=== PATIENT | female | born 1960 | race Caucasian/White ===

== ENCOUNTER 2017-06-05 14:30 | Outpatient (RCR) | payer MEDICARE, MEDICAID ==
[2016-08-23 09:35] VITALS: BMI 29.8
--- NOTE | 2017-05-29 17:41 | PT INITIAL EVALUATION ---
MEDICAL DIAGNOSIS: M47.22 Cervical radiculopathy due to DJD of spine TREATMENT DIAGNOSIS: Same DATE OF ONSET: 02/20/11 SUBJECTIVE: Lisa Hartman (Debbie) presents to PT for cervical pain worsening in the last 2 years, but present for several years. She reports limited tolerance to sitting (2 minutes), standing to do dishes (1-2 minutes) and disrupts her sleep (1-2 hours of sleep per night) and ADL's of housework. Neck disability index 80% impairment. Pain location is neck to scapulae, UE's and described as ache, UE's pins and needles entire UE's, hands. Pain scale is 10 on a ten point pain scale. Pain is worse with sitting, standing and better with lying down. REHAB PROBLEM LIST: Increased Pain Decreased ROM Decreased Strength Decreased ADL's Decreased Mobility PREVIOUS MEDICAL HISTORY: 2 lumbar surgeries, R TKA, O2 at night, OCCUPATION: Disabled OBJECTIVE: Posture: Forward head posture, increased thoracic kyphosis. ROM: AROM cervical spine rotation 35%, flexion 75%, extension 50%. AROM thoracic spine flexion 75%, minimal extension. AROM shoulders 100 deg. flexion , 80 deg. abduction. Strength: Leatha self-supports her cervical spine after sitting 8 minutes. Palpation: Painful with light palpation throughout the cervical and upper thoracic soft tissue, facets. Special Tests: DTR's 2/3 UE's. Pulse obliteration with stretch of scalenes and pectoralis minor, B. Mobility: Hypomobile cervical and thoracic spine, shoulders. ASSESSMENT: Lisa Hartman presents with reduced flexibility, ROM, postural weakness affecting sitting and sanding ADL's. She rated cervical pain 5/10 after manual therapy. Short Term Goals 4 weeks: Leatha sleeps 4 hours before awakening due to cervical pain, sits 10 minutes before having to lie down, stands 5 minutes before having to sit. 8 weeks: Leatha sleeps 5-6 hours before awakening due to cervical pain, sits 20 minutes before having to lie down, stands 15 minutes before having to sit down. Patient's Goals Reduce neck pain. PLAN: Patient to be seen for Manual Therapy, Strengthening/condition, Ice/Heat , Range of Motion, Spinal Stabilization, Stretching, Electrical Stim, Posture/ Body mechanics, Home Exercise Program 2x/Week for 2 Months Thank you for this referral. If you have any questions, comments, or concerns about this report or plan, please contact me at . mtdD
[~2017-06-05 14:30] MED LIST: ACE500 PO; ACET500T68 PO; ALBU8.5H IH; ALPR-429 PO; ALPR-448 PO; ALPR-460 PO; AMIT-106 PO; AMIT-108 PO; AMLO-96 PO; AMO500 PO; AMOX-359 PO; AMOX-559 PO; ASPI-1064 PO; ASPI-692 PO; ASPI-757 PO; ATOR20TA65 PO; AZIT-1 PO; AZIT-18 PO; BENZ100C26 PO; BENZ200C15 PO; CEFU250T67 PO; CHOL4PAC15 PO; CIP500 PO; CLO10 MT; CLOT15CR63 TP; COMP1EAC MC; CYCL10TA29 PO; DEXL60CA6 PO; DEXT10SY2 PO; DIA5 PO; DIAZ2TAB72 PO; DICL100G39 TOP; DICY20TA70 PO; DILT360T9 PO; DM H180L19 PO; DOXE25CA45 PO; DOXY50SY2 PO; DULO30CA35 PO; DULO30CA6 PO; DULO60CA56 PO; FLU45SYR17 IM; FLU60VIA21 IM ONLY; FLUT9.9S; FURO20TA19 PO; GAB300 PO; GABA-503 PO; GABA-549 PO; GUAI600T57 PO; HCTZ25 PO; HYDR-2966 PO; HYDR-3250 PO; HYDR-385 PO; HYDR-389 PO; HYDR-4228 PO; HYDR-4308 PO; HYDR-4309 PO; HYDR12.561 PO; HYDR2TAB74 PO; IBU800 PO; IBUP-1618 PO; IPRA15SP7 NS; KET10 PO; KETO120S13 TP; LACT PO; LEVO-85 PO; LEVO750T44 PO; LISI-362 PO; LISI20TA29 PO; LISI5TAB25 PO; LOPE-111 PO; LOR5 PO; LOR5/325 PO; LORA-629 PO; LORA10CA3 PO; MECL25TA9 PO; METH-278 PO; METH-542 PO; METH4TAB57 PO; METH4TAB66 PO; METO5TAB16 PO; MIRT-22 PO; MIRT-27 PO; MONT10TA PO; NIC10R INH; NOR5/325 PO; OMEP-218 PO; ONDA-2 PO; ONDA4TAB PO; ONDA4TAB9 PO; ONDA8TAB98 PO; OXYC-865 PO; OXYC5CAP21 PO; OXYGENHOME INH; PANT40TA65 PO; PER PO; PNEI IM; PNEU0.5D3 IM; POLY10DR20 OP; POTA-53 PO; POTA20TA85 PO; POTA20TA94 PO; PRAZ1CAP26 PO; PRAZ2CAP26 PO; PRE20 PO; PRED20TA6 PO; PROAIRPT IH; PROM-110 PO; PROP80CA3 PO; PROP80CA40 PO; PROP80TA25 PO; RAME8TAB43 PO; RAN150 PO; RANI-366 PO; RANI150C17 PO; RIZA5TAB17 PO; SCOT TD; SERT-181 PO; SERT-184 PO; SUCR1TAB51 PO; SUCR1TAB85 PO; SUMA100T32 PO; SUMA50TA34 PO; SUMA50TA35 PO; TRA50 PO; TRAZ-163 PO; TRAZ50 PO; TRIA15CR40 TP; ZOLCR625PT PO; ZOLP-1 PO; [UNRECOGNIZED DRUG - CODE] ASDIRECTED; [UNRECOGNIZED DRUG - CODE] TP
--- NOTE | 2017-06-19 08:40 | PT PLAN OF CARE ---
Physician: Lacey Hansen APRN MOTION STUDY TECHNICIAN-C Patient is being seen: twice Therapist: Brigette Partida, ALIS Medical Diagnosis: M47.22 Cervical radiculopathy due to DJD of spine Treatment Diagnosis: Same Date of Onset: 02/20/11 Date of Initial Evaluation: 05/29/17 Date patient was last seen: 06/05/17 Number of treatments: 2 Number of cancellations/No shows: 3 INTERVENTIONS: Manual Therapy GOALS: All not met 4 weeks: Leatha sleeps 4 hours before awakening due to cervical pain, sits 10 minutes before having to lie down, stands 5 minutes before having to sit. 8 weeks: Leatha sleeps 5-6 hours before awakening due to cervical pain, sits 20 minutes before having to lie down, stands 15 minutes before having to sit down. PATIENT'S GOAL: Reduce neck pain. not met Patient Compliance: Fair Prognosis: Good Reasons for discontinuing therapy: S: Leatha no showed her last three visits and left a voicemail today, requesting DC from PT. She didn't specify why, and I've left a voicemail on her phone asking if she was unhappy with her therapy. Manual therapy had reduced her neck pain from 10/10 to ~7/10 at her last visit. A/P: I don't kn ow why Leatha has decided to stop PT, but per her request, I'll close her PT case. Thank you. PASTOR
[2017-06-20] MEDS ORDERED: PRAZ2CAP26 PO (15:12)
[2017-06-20] MEDS ORDERED: HYDR12.561 PO (15:12)
== END 2017-06-05 18:00 | disposition home or self-care (01) ==
LOC: PT 14:30
PROVIDERS: ATTEND Nurse Practitioner Family
DX: M47.22 Other spondylosis with radiculopathy, cervical region (principal); Z96.651 Presence of right artificial knee joint; Z99.81 Dependence on supplemental oxygen
CPT/HCPCS: 97162

== ENCOUNTER → 2017-06-06 | Outpatient (CLI) | payer MEDICARE, MEDICAID ==
[2016-08-23 09:35] VITALS: BMI 29.8
== END ==
LOC: LAB 15:33
PROVIDERS: ATTEND Otolaryngology
DX: J30.9 Allergic rhinitis, unspecified (principal)
CPT/HCPCS: 36415; 86003

== ENCOUNTER → 2017-06-20 | Outpatient (CLI) | payer MEDICARE, MEDICAID ==
[2016-08-23 09:35] VITALS: BMI 29.8
--- NOTE | 2017-06-20 15:37 | EKG ---
FACILITY: [facility] - [place] PATIENT NAME: IVANA COTTON : [id number] MR: [id number] V: [id number] EXAM DATE: ORDERING PHYSICIAN: MACRINA GAYTAN TECHNOLOGIST: BRYAN Test Reason : PREOP-HTN Blood Pressure : / mmHG Vent. Rate : 060 BPM Atrial Rate : 060 BPM P-R Int : 178 ms QRS Dur : 072 ms QT Int : 466 ms P-R-T Axes : 050 020 042 degrees QTc Int : 466 ms Normal sinus rhythm Septal infarct , age undetermined No ST-T abnormalities When compared with ECG of 31-OCT-2016 13:20, Relatively unchanged Confirmed by MILY ALDANA ([id number]) on 06/20/2017 4:19:41 PM Referred By: LUKAS Confirmed By:MILY ALDANA
[2017-06-20 15:58] LABS: PLATELET COUNT, AUTOMATED 220 K/uL (150-450)
--- NOTE | 2017-06-20 16:08 | RADIOLOGY IMAGING REPORT ---
FACILITY: [facility] - [place] PATIENT NAME: Lisa Hartman : 1960 MR: [id number] V: [id number] EXAM DATE: ORDERING PHYSICIAN: MACRINA GAYTAN TECHNOLOGIST: Location: [facility] [place] Patient: Lisa Hartman : 1960 Visit/Account:[id number] Date of Sevice: 06/20/2017 Technique: CHEST PA AND LAT HISTORY: Preoperative, history of smoking COMPARISON: CTA chest October 31, 2016, chest radiographs August 12, 2016 Findings: No lobar airspace consolidation. No pleural effusion. The cardiomediastinal silhouette is unchanged. Incomplete visualization of lumbar spinal fusion hardware is noted. IMPRESSION: 1. No acute cardiopulmonary process. Report Dictated By: Fidencio Faust DO at 06/20/2017 4:02 PM Report E-Signed By: Fidencio Faust DO at 06/20/2017 4:04 PM WSN:[email or web address]
== END ==
LOC: RESP 15:21
PROVIDERS: ATTEND Nurse Practitioner Family
DX: I10 Essential (primary) hypertension (principal); Z87.891 Personal history of nicotine dependence
CPT/HCPCS: 36415; 71046; 82040; 82247; 82310; 82374; 82435; 82565; 82947; 84075; 84132; 84155; 84295; 84450; 84460; 84520; 85025; 93005

== ENCOUNTER → 2017-07-04 | Outpatient (CLI) | payer MEDICARE, MEDICAID ==
[2016-08-23 09:35] VITALS: BMI 29.8
[2017-07-04 15:04] LABS: PLATELET COUNT, AUTOMATED 262 K/uL (150-450)
== END ==
LOC: LAB 14:44
PROVIDERS: ATTEND Nurse Practitioner Family
DX: D64.9 Anemia, unspecified (principal); R71.8 Other abnormality of red blood cells
CPT/HCPCS: 36415; 82607; 82728; 82746; 83540; 83550; 85025; 85045

== ENCOUNTER → 2017-07-28 | Outpatient (CLI) | payer MEDICARE, MEDICAID ==
[2016-08-23 09:35] VITALS: BMI 29.8
[~2017-07-28] MED LIST changes: +PREG50CA48 PO; +PREG75CA60 PO
--- NOTE | 2017-07-28 14:14 | RADIOLOGY IMAGING REPORT ---
FACILITY: [facility] PATIENT NAME: Lisa Hartman : 1960 MR: [id number] V: [id number] EXAM DATE: ORDERING PHYSICIAN: MACRINA GAYTAN TECHNOLOGIST: Location: [facility] Patient: Lisa Hartman : 1960 Visit/Account:[id number] Date of Sevice: 07/28/2017 ANKLE BRACHIAL INDICES HISTORY: claudication COMPARISON: None. FINDINGS: Right CHRISSY is 1.17. Left CHRISSY is 1.17. Right TBI is 0.7, left TBI 0.64. Further evaluation could be performed with the remainder of a noninvasive examination including segmental pressures and pulse vol ume recordings. Pulse volume recordings are only obtained at the level of the ankle. Waveforms appear within normal limits. IMPRESSION: 1. ABIs are 1.17 bilaterally, normal at rest. Report Dictated By: Yair Davies MD at 07/28/2017 2:05 PM Report E-Signed By: Yair Davies MD at 07/28/2017 2:09 PM WSN:[id number]
--- NOTE | 2017-08-01 08:32 | RADIOLOGY IMAGING REPORT ---
FACILITY: [facility] - [place] PATIENT NAME: IVANA COTTON : [id number] MR: [id number] V: [id number] EXAM DATE: ORDERING PHYSICIAN: MACRINA GAYTAN TECHNOLOGIST: Christine Frey PROCEDURE:BILATERAL DIGITAL SCREENING MAMMOGRAM WITH CAD ASSISTED INTERPRETATION & 3D TOMOSYNTHESIS COMPARISON:Prior mammograms 10/06/15, 04/24/14, 05/09/13, 04/02/12. INDICATIONS:screening FINDINGS: A small amount of fibroglandular tissue is seen throughout the breasts. In the upper portion of the Right breast in the anterior 1/3 on the Right MLO view there is a small focal area of density for which spot compression view is recommended. DIAGNOSTIC CATEGORY 0--INCOMPLETE: NEED ADDITIONAL IMAGING EVALUATION. RECOMMENDATIONS: ADDITIONAL MAMMOGRAPHIC VIEWS REQUIRED: RIGHT BREAST. IMPRESSION: BIRADS 0: Incomplete. Additional views of the Right breast recommended as described. Dictated by: Vi Aranda M.D. on 07/31/2017 at 15:15 Transcribed by: JIMMIE on 07/31/2017 at 15:35 Approved by: Vi Aranda M.D. on 08/01/2017 at 8:32 [facility]
== END ==
LOC: MAMO 01:10
PROVIDERS: ATTEND Nurse Practitioner Family
DX: Z12.31 Encounter for screening mammogram for malignant neoplasm of breast (principal); R92.8 Other abnormal and inconclusive findings on diagnostic imaging of breast; I73.9 Peripheral vascular disease, unspecified
CPT/HCPCS: 77063; 77067; 93922

== ENCOUNTER → 2017-08-11 | Outpatient (CLI) | payer MEDICARE, MEDICAID ==
[2016-08-23 09:35] VITALS: BMI 29.8
--- NOTE | 2017-08-11 15:08 | RADIOLOGY IMAGING REPORT ---
FACILITY: [facility] - [place] PATIENT NAME: IVANA COTTON : [id number] MR: [id number] V: [id number] EXAM DATE: ORDERING PHYSICIAN: MACRINA GAYTAN TECHNOLOGIST: Reina Khan PROCEDURE:RIGHT DIGITAL DIAGNOSTIC MAMMOGRAM WITH CAD ASSISTED INTERPRETATION & 3D TOMOSYNTHESIS COMPARISON:Prior mammograms 07/28/17, 10/06/15, 04/24/14, 04/11/13, 04/02/12. INDICATIONS:further evaluation FINDINGS: The patient returned for Spot compression views in the Right MLO projection with 3D breast Tomosynthesis. The small focal area of increased density in the anterior upper portion of the Right breast on the recent Right MLO view appeared compressible and appeared similar to prior studies. There is no demonstration of malignant appearing mass or calcification in the Right breast. DIAGNOSTIC CATEGORY 2--BENIGN FINDING. RECOMMENDATIONS: ROUTINE MAMMOGRAM AND CLINICAL EVALUATION. IMPRESSION: BIRADS 2: Benign finding. No significant abnormality is seen. Dictated by: Vi Aranda M.D. on 08/11/2017 at 11:22 Transcribed by: JIMMIE on 08/11/2017 at 11:30 Approved by: Vi Aranda M.D. on 08/11/2017 at 15:07 [facility]
== END ==
LOC: MAMO 02:18
PROVIDERS: ATTEND Nurse Practitioner Family
DX: R92.8 Other abnormal and inconclusive findings on diagnostic imaging of breast (principal)
CPT/HCPCS: 77061; 77065

== ENCOUNTER → 2017-08-28 | Outpatient (CLI) | payer MEDICARE, MEDICAID ==
[2016-08-23 09:35] VITALS: BMI 29.8
[~2017-08-28] MED LIST changes: -TRAZ-163 PO; +TRAZ100T31 PO
== END ==
LOC: LAB 09:43
PROVIDERS: ATTEND Nurse Practitioner Family
DX: D64.9 Anemia, unspecified (principal); R71.8 Other abnormality of red blood cells; N64.3 Galactorrhea not associated with childbirth
CPT/HCPCS: 36415; 84146; 84439; 84443; 84480; 88104

== ENCOUNTER 2017-11-20 00:22 | Day surgery (SDC) | payer MEDICARE, MEDICAID ==
[2016-08-23 09:35] VITALS: Ht 160 cm; Wt 78.0 kg
[~2017-11-20] VITALS: Ht 160 cm; Wt 78.0 kg
[~2017-11-20 00:22] MED LIST changes: +AMLO-111 PO; -AMLO-96 PO; -KETO120S13 TP; +KETO120S14 TP
[2017-11-20] MEDS ORDERED: ceFAZolin(*) 1 GM VIAL 1 GM in NS(*) 0.9% 100 ML ADDVANT BAG 100 ML IVPB ONE (05:40)
[2017-11-20] MEDS ORDERED: MIDAZOLAM 2 MG/2 ML VIAL IVP PRN (06:30)
[2017-11-20] MEDS ORDERED: NORMOSOL R SOLN(*) 1000 ML BAG 1,000 ML IV PRN (06:30)
[2017-11-20] MEDS ORDERED: LIDOCAINE/SOD BICARB 8.4% SYR ID ONE (06:30)
[2017-11-20] MEDS ORDERED: FAMOTIDINE 20 MG TAB PO ONE (07:20)
[2017-11-20 07:21] VITALS: BP 118/78
[2017-11-20] MEDS ORDERED: ONDANSETRON 4 MG/2 ML VIAL ONE (08:03)
[2017-11-20] MEDS ORDERED: BACITRACIN OINT 15 GM TUBE TP ONE (08:03)
[2017-11-20] MEDS ORDERED: fentaNYL CITR 100 MCG/2 ML AMP ONE (08:03)
[2017-11-20] MEDS ORDERED: KETAMINE HCL-NS 50 MG/5 ML SYR ONE (08:03)
[2017-11-20] MEDS ORDERED: PROPOFOL EMUL(*) 10MG/ML 20 ML 20 ML ONE (08:03)
[2017-11-20] MEDS ORDERED: OXYMETAZOLINE SPRAY 15 ML BTL ONE (08:03)
[2017-11-20] MEDS ORDERED: DEXAMETHASONE SOD PHOS 10MG/ML ONE (08:03)
[2017-11-20] MEDS ORDERED: LIDOCAINE MPF 1% 5 ML VIAL ONE (08:03)
[2017-11-20] MEDS ORDERED: MUPIROCIN 2% OINT 22 GM TUBE TP ONE (08:04)
[2017-11-20] MEDS ORDERED: LIDO/EPI 1% MDV 1:100,000 20ML INFIL ONE (08:04)
[2017-11-20] MEDS ORDERED: NS(*) 0.9% 250 ML BAG 250 ML ONE (08:04)
[2017-11-20] MEDS ORDERED: ROCURONIUM BROM 10 MG/ML 5 ML ONE (08:30)
[2017-11-20] MEDS ORDERED: SUGAMMADEX SOD 500 MG/5 ML SDV ONE (08:38)
[2017-11-20] MEDS ORDERED: CEFU500T10 PO (09:22)
[2017-11-20] MEDS ORDERED: HYDR-4309 PO (09:23)
[2017-11-20 10:10] VITALS: BP 124/83
[2017-11-20 10:14] VITALS: BP 107/76
[2017-11-20] MEDS ORDERED: ALBUTEROL/IPRATROPIUM 3 ML NEB ONE (10:17)
[2017-11-20 10:18] VITALS: BP 114/71
--- NOTE | 2017-11-20 10:43 | OPERATIVE REPORT 1 ---
EVENT DATE: November 20, 2017 SURGEON: Naldo Blank M.D. ANESTHESIOLOGIST: Glenn Guy MD ANESTHESIA: General. PREOPERATIVE DIAGNOSIS 1. Nasal septal deviation. 2. Bilateral inferior turbinate hypertrophy. POSTOPERATIVE DIAGNOSIS 1. Nasal septal deviation. 2. Bilateral inferior turbinate hypertrophy. PROCEDURE PERFORMED 1. Septoplasty. 2. Submucous resection of bilateral inferior turbinates. INDICATIONS Please refer to preoperative note. DESCRIPTION OF PROCEDURE The patient was positively identified in the preoperative area. She was accompanied by her significant other. Risks were again explained, including but not limited to bleeding, infection, nasoseptal perforation and those associated with anesthesia. She acknowledged understanding those risks. She was then brought back to the operative suite, laid supine on the operative table and anesthesia was administered. Once asleep, the patient was positioned and prepped and draped in usual sterile fashion. The nose was initially decongested by injecting approximately 10 cc of 1% lidocaine with epinephrine into the bilateral anterior nasoseptal mucosa and along the face of the bilateral inferior turbinates. Both nasal cavities were subsequently packed with cottonoids containing Afrin solution. These were subsequently removed and nasal endoscopy was performed. This was notable for a left inferior septal spur and a severe septal deviation to the right. A Ignacio incision was made into the left anterior nasoseptal mucosa. A subperichondrial flap was elevated. An incision was then made into the anterior nasal septal cartilage. A contralateral flap was raised. Deviated portion of patient's nasoseptal cartilage and bone was then removed. Ignacio incision was reapproximated with interrupted chromic stitch. I then addressed the inferior turbinates. A stab incision was made at the face of the left inferior turbinate. A caudal elevator was utilized to elevate the mucosa off the underlying bone. A submucous resection was then performed with turbinate blader of the microdebrider. Stab incision was then cauterized and suctioned by Bovie electrocautery. The contralateral inferior turbinate was then addressed in a similar fashion. Bilateral nasoseptal splints were then placed and secured to the columella with a suture. The patient was then turned to anesthesia for emergence. ESTIMATED BLOOD LOSS 25 mL. COMPLICATIONS No complications. MTDD
[2017-11-20] MEDS ORDERED: ACETAM/ASA/CAFFEINE 250/250/65 PO ONE (10:45)
== END 2017-11-20 10:10 | disposition home or self-care (01) ==
LOC: OR 00:22
PROVIDERS: ATTEND Otolaryngology
DX: J34.2 Deviated nasal septum (principal); J34.3 Hypertrophy of nasal turbinates; J44.9 Chronic obstructive pulmonary disease, unspecified; K21.9 Gastro-esophageal reflux disease without esophagitis; G47.33 Obstructive sleep apnea (adult) (pediatric)
CPT/HCPCS: 30140; 30520; 94640; 94667; A9270; J0690; J1100; J2001; J2405; J2704; J3010; J3490; J7050; J7620

== ENCOUNTER → 2017-12-04 | Outpatient (CLI) | payer MEDICARE, MEDICAID ==
[2016-08-23 09:35] VITALS: BMI 29.8
[~2017-12-04] MED LIST changes: +CEFU500T10 PO; -HYDR-4308 PO; -HYDR-4309 PO; +HYDR-653 PO; +HYDR-654 PO
== END ==
LOC: LAB 09:49
PROVIDERS: ATTEND Nurse Practitioner Family
DX: E78.5 Hyperlipidemia, unspecified (principal)
CPT/HCPCS: 36415; 82465; 83718; 84478

== ENCOUNTER → 2018-03-05 | Outpatient (CLI) | payer MEDICARE, MEDICAID ==
[2016-08-23 09:35] VITALS: BMI 29.8
[~2018-03-05] MED LIST changes: -AMLO-111 PO; +AMLO-125 PO; -GABA-503 PO; +GABA-533 PO
[2018-03-05 09:49] LABS: PLATELET COUNT, AUTOMATED 194 K/uL (150-450)
== END ==
LOC: LAB 09:35
PROVIDERS: ATTEND Nurse Practitioner Family
DX: R42 Dizziness and giddiness (principal)
CPT/HCPCS: 36415; 82040; 82247; 82310; 82374; 82435; 82565; 82947; 84075; 84132; 84155; 84295; 84450; 84460; 84520; 85025

== ENCOUNTER → 2018-06-01 | Outpatient (CLI) | payer MEDICARE, MEDICAID ==
[2016-08-23 09:35] VITALS: BMI 29.8
[~2018-06-01] MED LIST changes: -MIRT-27 PO; +MIRT15TA11 PO
== END ==
LOC: LAB 09:00
PROVIDERS: ATTEND Nurse Practitioner Family
DX: N18.9 Chronic kidney disease, unspecified (principal); Z79.899 Other long term (current) drug therapy; I12.9 Hypertensive chronic kidney disease with stage 1 through stage 4 chronic kidney disease, or unspecified chronic kidney disease
CPT/HCPCS: 36415; 80305; 81001; 82040; 82043; 82247; 82310; 82374; 82435; 82565; 82570; 82947; 83970; 84075; 84132; 84155; 84295; 84450; 84460; 84520

== ENCOUNTER → 2018-06-19 | Outpatient (CLI) | payer MEDICARE, MEDICAID ==
[2016-08-23 09:35] VITALS: BMI 29.8
[~2018-06-19] MED LIST changes: +HYDR50CA48 PO
--- NOTE | 2018-06-19 13:41 | RADIOLOGY IMAGING REPORT ---
FACILITY: [facility] - [place] PATIENT NAME: Lisa Hartman : 1960 MR: [id number] V: [id number] EXAM DATE: ORDERING PHYSICIAN: MACRINA GAYTAN TECHNOLOGIST: Location: [facility] Patient: Lisa Hartman : 1960 Visit/Account:[id number] Date of Sevice: 06/19/2018 CT ABDOMEN PELVIS W/O CON HISTORY: Kidney stone protocol, left-sided flank pain x3 days TECHNIQUE: Axial images acquired through the abdomen/pelvis. Coronal and sagittal reformatting also performed. No IV contrast administered.Dose Lowering Technique One of the following dose optimization techniques was utilized in the performance of this exam: Autom ated exposure control; adjustment of the mA and/or kV according to the patient's size; or use of an i terative reconstruction technique. Specific details can be referenced in the facility's radiology C T exam operational policy. COMPARISON: CT September 22, 2014 FINDINGS: Visualized lung bases: There is linear scarring in the right lower lobe Hepatobiliary: There postsurgical changes from a cholecystectomy with intra and extrahepatic biliary ductal dilatation. That is mildly more prominent when compared to the prior study.. An obstructing calculus is not identified Spleen: Negative. Adrenals: Negative. Pancreas: Negative. Kidneys ureters and bladder: There is no demonstration of nephrolithiasis hydronephrosis or hydrouret er. Several tiny calcifications within the pelvis likely representing phleboliths although since ure ters are not opacified with contrast possibility of distal ureteral calculus not entirely excluded Genitalia: Uterus appears atrophic GI: There is a moderate amount of fecal material seen throughout colon which can be seen with consti pation Vessels/spaces/nodes: There are mild to moderate atherosclerotic calcifications throughout the abdom en and pelvis Bones/soft tissues: There are postoperative changes the lumbar spine and spondylotic changes again n oted. The degenerative endplate changes at L2-3 have advanced. The anterolisthesis of L4 with respe ct L5 appears similar. Additional findings: None pertinent. IMPRESSION: Postsurgical changes from a cholecystectomy with intra and extrahepatic biliary ductal dilatation eleonora t is mildly more prominent when compared to the prior study. An obstructing calculus is not seen. I f biliary obstruction is of clinical concern MRCP may be helpful No demonstration of nephrolithiasis, hydronephrosis or hydroureter. Several tiny calcifications with in the pelvis likely represent phleboliths although since ureters are not opacified with contrast pos sibility of distal ureteral calculi not totally excluded. Moderate amount of fecal material seen throughout colon which can be seen with constipation Additional chronic findings as described An attempt was made to call MACRINA GAYTAN at 06/19/2018 1:36 PM. However [facility]. Report Dictated By: Vi Aranda MD at 06/19/2018 1:21 PM Report E-Signed By: Vi Aranda MD at 06/19/2018 1:37 PM WSN:[id number]
== END ==
LOC: CT 07:07
PROVIDERS: ATTEND Nurse Practitioner Family
DX: N85.8 Other specified noninflammatory disorders of uterus (principal); K59.00 Constipation, unspecified; Z90.49 Acquired absence of other specified parts of digestive tract; I25.10 Atherosclerotic heart disease of native coronary artery without angina pectoris
CPT/HCPCS: 74176

== ENCOUNTER → 2018-06-29 | Outpatient (CLI) | payer MEDICARE, MEDICAID ==
[2016-08-23 09:35] VITALS: BMI 29.8
[~2018-06-29] MED LIST changes: +GADOBENATE 529MG/1ML 15ML VIAL IVP ONE; +NS(*) 0.9% 50 ML BAG 50 ML ONE
[2018-06-29 07:43] LABS: PLATELET COUNT, AUTOMATED 151 K/uL (150-450)
--- NOTE | 2018-06-29 11:17 | RADIOLOGY IMAGING REPORT ---
FACILITY: [facility] - [place] PATIENT NAME: Lisa Hartman : 1960 MR: [id number] V: [id number] EXAM DATE: ORDERING PHYSICIAN: MACRINA GAYTAN TECHNOLOGIST: Location: [facility] Patient: Lisa Hartman : 1960 Visit/Account:[id number] Date of Sevice: 06/29/2018 MR ABDOMEN MRCP W & W/O CONTRAST COMPARISON: Noncontrast CT abdomen 06/19/2018. HISTORY: right flank pain - dilated bile duct TECHNIQUE: Pre and post contrast multiplanar MRI of the abdomen utilizing T1 weighted and fluid sens itive sequences. Diffusion-weighted imaging was performed. MRCP was performed. CONTRAST: 15 mL MultiHance intravenously MRI ABDOMEN FINDINGS: LIVER: Normal size, morphology and signal with no significant steatosis or concerning lesions. BILIARY: Absent gallbladder with a prominent common duct, common hepatic duct reaching 1 cm maximally which is upper normal for postcholecystectomy state, with normal tapering di stally. There is mild intrahepatic bile duct prominence. No evidence of ductal stricture or choledoch olithiasis. SPLEEN: Unremarkable. PANCREAS: Unremarkable. No appreciable lesion, fluid collection, ductal dilatation, or atrophy. ADRENALS: Unremarkable. KIDNEYS: Both kidneys are somewhat small, about 3.6 in bipolar length on the right and 7.7 cm bipola r length, left, otherwise normal in appearance. GI/MESENTERY: Unremarkable by MRI. VASCULAR: Mild atherosclerotic aortic irregularity. LYMPH NODES: No adenopathy. BONES: Fusion hardware in the lower lumbar spine with lumbar spine degenerative disc disease. Otherw ise negative. OTHER: Moderate cardiomegaly.. IMPRESSION: 1. Common duct size is upper normal for postcholecystectomy state and there is no evidence of ductal stricture or choledocholithiasis. 2. No specific findings to account for right flank pain. 3. Somewhat small otherwise normal-appearing kidneys. 4. Moderate cardiomegaly. Report Dictated By: Nigel Valerio at 06/29/2018 11:07 AM Report E-Signed By: Nigel Valerio at 06/29/2018 11:12 AM WSN:[id number]
== END ==
LOC: MRI 06-26 14:14
PROVIDERS: ATTEND Nurse Practitioner Family
DX: K83.8 Other specified diseases of biliary tract (principal); R10.9 Unspecified abdominal pain
CPT/HCPCS: 36415; 74183; 82150; 83690; 85025; A9577; J7050; 82040; 82247; 82310; 82374; 82435; 82565; 82947; 84075; 84132; 84155; 84295; 84450; 84460; 84520

== ENCOUNTER → 2018-08-31 | Outpatient (CLI) | payer MEDICARE, MEDICAID ==
[2016-08-23 09:35] VITALS: BMI 29.8
[~2018-08-31] MED LIST changes: -GADOBENATE 529MG/1ML 15ML VIAL IVP ONE; -NS(*) 0.9% 50 ML BAG 50 ML ONE; +POTA-23 PO; +PROP80CA PO; -PROP80CA3 PO; -RANI-366 PO; +RANI-54 PO
== END ==
LOC: LAB 09:10
PROVIDERS: ATTEND Nurse Practitioner Family
DX: I10 Essential (primary) hypertension (principal)
CPT/HCPCS: 36415; 82310; 82374; 82435; 82565; 82947; 84132; 84295; 84520